=== PATIENT | male | born 1980 | race Two or more races ===

== ENCOUNTER → 2017-05-19 | Outpatient (CLI) | payer BC ==
--- NOTE | 2017-05-19 13:12 | KCIC ---
Right shoulder radiograph May 19, 2017 INDICATION: Shoulder popping, shoulder pain COMPARISON: None available TECHNIQUE: 3 views of the right shoulder are provided. FINDINGS: There is no acute fracture or dislocation. Bone mineralization is within normal limits. Joint spaces are maintained. Regional soft tissues are within normal limits. There is no soft tissue gas or osseous erosion. IMPRESSION: No acute fracture or dislocation. Electronically signed by: Perla Linares MD (05/19/2017 1:09 PM) [id number]
--- NOTE | 2017-05-19 13:12 | KCIC ---
Left shoulder radiograph May 19, 2017 INDICATION: Shoulder popping COMPARISON: None available TECHNIQUE: 3 views of the left shoulder are provided. FINDINGS: There is no acute fracture or dislocation. Bone mineralization is within normal limits. Joint spaces are maintained. Regional soft tissues are within normal limits. There is no soft tissue gas or osseous erosion. IMPRESSION: No acute fracture or dislocation. Electronically signed by: Perla Linares MD (05/19/2017 1:09 PM) [id number]
== END | disposition home or self-care (01) ==
LOC: KCIC 10:42
PROVIDERS: ATTEND Family Medicine
DX: M25.511 Pain in right shoulder (principal); M25.512 Pain in left shoulder
CPT/HCPCS: 73030

== ENCOUNTER 2021-06-06 15:33 | Emergency (ER) | payer SELFPAY ==
[~2021-06-06] VITALS: Ht 172.7 cm; Wt 96.3 kg
[2021-06-06 16:08] VITALS: BP 124/65
[2021-06-06] MEDS ORDERED: IBUPROFEN 200 MG TABLET. PO ONE (17:15)
[2021-06-06] MEDS ORDERED: CYCLOBENZAPRINE 10 MG TABLET. PO ONE (17:15)
--- NOTE | 2021-06-06 17:36 | RAD ---
EXAM: 3 Views Left Shoulder DATE: 06/06/2021 5:31 PM INDICATION: Reason: pain / Spl. Instructions: / History: COMPARISON: No Prior FINDINGS: There is no evidence for acute fracture or dislocation. AC joint is congruent. Humeral head is not hi gh riding. IMPRESSION: 1. No acute fracture or dislocation. Electronically signed by: Vinay Teran MD (06/06/2021 5:34 PM) [facility]
[2021-06-06] MEDS ORDERED: CYCL5TAB PO (17:41)
[2021-06-06] MEDS ORDERED: IBUP-1007 PO (17:41)
--- NOTE | 2021-06-06 17:41 | PHYS DOC ---
Past Medical History Past Surgical History: No Surgical History Smoking Status: Never Smoker Alcohol Use: Occasionally General Adult EDM: Chief Complaint: SHOULDER INJURY HPI: HPI: Patient is a 40 year old male who presents with works at [employer] and was lifting heavy cakes when he developed left shoulder pain. It hurts with movement in all directions. There is no loss of range of motion chest pain. He denies any numbness or tingling or focal weakness. Rates his pain at a 6 out of 10. He states he did not take any pain medication to help with his pain. Review of Systems: Review of Systems: Constitutional: Denies fever or chills. [] Eyes: Denies change in visual acuity. [] HENT: Denies nasal congestion or sore throat. [] Respiratory: Denies cough or shortness of breath. [] Cardiovascular: Denies chest pain or edema. [] GI: Denies abdominal pain, nausea, vomiting, bloody stools or diarrhea. [] : Denies dysuria. [] Musculoskeletal: Denies back pain or + left shoulder joint pain. [] Integument: Denies rash. [] Neurologic: Denies headache, focal weakness or sensory changes. [] Endocrine: Denies polyuria or polydipsia. [] Lymphatic: Denies swollen glands. [] Psychiatric: Denies depression or anxiety. [] Heart Score: C/O Chest Pain: No Current Medications: Current Medications Medications (Trade) Dose Ordered Sig/Aydee Start Time Stop Time Status Last Admin Dose Admin Cyclobenzaprine HCl (Flexeril) 10 mg 1X ONCE 06/06/21 17:15 06/06/21 17:16 DC 06/06/21 17:20 10 MG Ibuprofen (Motrin) 600 mg 1X ONCE 06/06/21 17:15 06/06/21 17:16 DC 06/06/21 17:22 600 MG Allergies: Allergies: Allergies Coded Allergies Type Severity Reaction Last Updated Verified No Known Drug Allergies 06/06/21 No Physical Exam: PE: Constitutional: Well developed, well nourished, no acute distress, non-toxic appearance. [] HENT: Normocephalic, atraumatic, bilateral external ears normal, oropharynx moist, no oral exudates, nose normal. [] Eyes: PERRLA, EOMI, conjunctiva normal, no discharge. [] Neck: Normal range of motion, no tenderness, supple, no stridor. [] Cardiovascular:Heart rate regular rhythm, no murmur [] Lungs & Thorax: Bilateral breath sounds clear to auscultation [] Abdomen: Bowel sounds normal, soft, no tenderness, no masses, no pulsatile masses. [] Skin: Warm, dry, no erythema, no rash. [] Back: No tenderness, no CVA tenderness. [] Extremities: No tenderness, no cyanosis, no clubbing, ROM intact but painful, no edema. [] Neurologic: Alert and oriented X 3, normal motor function, normal sensory function, no focal deficits noted. [] Psychologic: Affect normal, judgement normal, mood normal. [] Current Patient Data: Vital Signs: Vital Signs Date Time Temp Pulse Resp B/P (MAP) Pulse Ox O2 Delivery O2 Flow Rate FiO2 06/06/21 16:08 97.9 76 16 124/65 (84) 97 Room Air 97.9 EKG: EKG: [] Radiology/Procedures: Radiology/Procedures: [] Impression: [facility] [address] [place] [address] IMAGING REPORT Signed PATIENT: STAR FRANCEACCOUNT: [id number] : 1980 LOCATION: ER AGE: 40 SEX: M EXAM STATUS: REG ER ORD. PHYSICIAN: JOVANI BOSCH APRN REASON: pain PROCEDURE: SHOULDER 2+V LEFT EXAM: 3 Views Left Shoulder DATE: 06/06/2021 5:31 PM INDICATION: Reason: pain / Spl. Instructions: / History: COMPARISON: No Prior FINDINGS: There is no evidence for acute fracture or dislocation. AC joint is congruent. Humeral head is not high riding. IMPRESSION: 1. No acute fracture or dislocation. Electronically signed by: Vinay Teran MD (06/06/2021 5:34 PM) [facility] DICTATED and SIGNED BY: VINAY TERAN MD DATE: 06/06/21 [id number] 0 Course & Med Decision Making: Course & Med Decision Making Pertinent Labs and Imaging studies reviewed. (See chart for details) See HPI. Alert and oriented x4. Ambulatory steady gait. Skin pink warm and dry. Radial pulses are strong and present. No extremity edema. No deformity to the joint. No redness to the joint. No laxity in the joint. No popping or crepitus. No joint swelling. Cap refill less than 2 seconds. No bruising. Full strengths. Neurologically intact. Patient is given ibuprofen in the ED. [] Vonda Disclaimer: Dragmartah Disclaimer: This electronic medical record was generated, in whole or in part, using a voice recognition dictation system. Departure Departure Impression: Primary Impression: Shoulder pain, acute Qualified Codes: M25.512 - Pain in left shoulder Disposition: HOME / SELF CARE / HOMELESS Condition: STABLE Referrals: ARSALAN GARCIA MD (PCP) TOMI CEDILLO MD Patient Instructions: Shoulder Sprain Additional Instructions: Follow-up with primary care provider or the orthopedic I have referred you to. Take ibuprofen and use a heating pad or ice. Try not to lift anything heavy until you have seen the doctor. You may need an MRI. You begin having numbness or tingling or swelling to the joint return to the emergency room. Scripts Cyclobenzaprine Hcl (CYCLOBENZAPRINE HCL) 5 Mg Tablet 1 TAB PO TID, #15 TAB Prov: JOVANI BOSCH DATA CONVERSION ANALYST 06/06/21 Ibuprofen (IBUPROFEN) 600 Mg Tablet 600 MG PO PRN Q6HRS PRN for INFLAMMATION, #25 TAB Prov: JOVANI BOSCH APRN 06/06/21 JOVANI BOSCH APRN Jun 06, 2021 17:41
== END 2021-06-06 18:08 | disposition home or self-care (01) ==
LOC: ER 15:33
DX: M25.512 Pain in left shoulder (principal)
CPT/HCPCS: 73030; 99283